=== PATIENT | female | born 1940 | race Caucasian/White ===

== ENCOUNTER 2018-02-12 06:57 | Day surgery (SDC) | payer MEDICARE, OTHER ==
[~2018-02-12 06:57] MED LIST: Lactated Ringers 1,000 ML IV SCH
[2018-02-12] MEDS ORDERED: Propofol 200 MG/20 ML SDV ONE (07:57)
[2018-02-12] MEDS ORDERED: fentaNYL 100 MCG/2 ML SDV ONE (07:57)
[2018-02-12 09:25] VITALS: BP 125/55
--- NOTE | 2018-02-15 08:05 | OR ---
PREOPERATIVE DIAGNOSIS: Family history of colon cancer-mother and sister. POSTOPERATIVE DIAGNOSIS: Normal colonoscopic exam. PROCEDURE PROPOSED AND PROCEDURE DONE: Total flexible colonoscopy. INDICATION: This is a 77-year-old female, who comes in for colonic surveillance due to a family history of a mother and a sister with colon cancer. She denies any symptomatology. Her last examination was approximately 5 years ago. TECHNIQUE: The patient was brought to the endoscopy suite, placed in left lateral decubitus position. She was sedated per [employer] with propofol. The flexible video colonoscope was then passed transanally and under visualization advanced to the cecum. Examination revealed normal ascending, transverse, descending, sigmoid, and rectal colon. There was no evidence of any polyps, diverticulosis, colitis, or other abnormalities and the scope was then withdrawn. The patient tolerated the procedure well. FINAL IMPRESSION: 1. Essentially normal colonoscopic exam. 2. Family history of colon cancer. PLAN: At her age now, I do not feel she needs to continue with colonic surveillance, so I feel that she does not need any future colonoscopies. SCM: 02/12/2018 08:44:40 MODL: 02/12/2018 14:57:18 /[id number]
== END 2018-02-12 09:55 | disposition home or self-care (01) ==
LOC: VM.SDS 06:57
PROVIDERS: ATTEND Surgery
DX: Z12.11 Encounter for screening for malignant neoplasm of colon (principal); Z80.0 Family history of malignant neoplasm of digestive organs
CPT/HCPCS: G0105; J2704; J3010; J7120; 00812

== ENCOUNTER 2021-02-03 18:04 | Emergency (ER) | payer MEDICARE, OTHER ==
[2021-02-03] MEDS ORDERED: Dexamethasone 4 MG/ML SDV IM ONE (18:27)
[2021-02-03] MEDS ORDERED: Ketorolac 30 MG/ML SDV IM ONE (18:27)
--- NOTE | 2021-02-03 18:33 | EDM.PDOC ---
ED HPI GENERAL MEDICAL PROBLEM - General Chief Complaint: Back Pain or Injury Stated Complaint: BACK PAIN Time Seen by Provider: 02/03/21 18:20 Source of Information: Reports: Patient History Limitations: Reports: No Limitations - History of Present Illness INITIAL COMMENTS - FREE TEXT/NARRATIVE: Patient comes into the emergency department complaint of right lower back pain. Patient has a longstanding history of chronic back pain and does receive injections every 6 months. Patient states that she is to have an injection here in approximately 2 weeks and states that it has been increasing in pain over the last 24 hours. She denies any fall, trauma, swelling, CMS concerns, range of motion concerns, lower extremity swelling, or decrease in skin discoloration. Patient states that the pain has just been increasing. The patient's family member at the bedside also states that the patient has been having some elevated blood pressure intermittently when her pain is elevated as well as constipation issues. Her last bowel movement was proximately 2 days ago. Patient denies taking anything [id number] to help with her bowel movements. She denies any fever, nausea, vomiting, chest pain, dizziness, lightheadedness, genitourinary concerns or peripheral edema thank you Onset: Gradual Location: Reports: Back Quality: Reports: Stabbing, Throbbing Severity: Moderate Improves with: Reports: Rest Worsens with: Reports: Movement Context: Reports: Other Associated Symptoms: Reports: No Other Symptoms - Related Data Allergies Allergy/AdvReac Type Severity Reaction Status Date / Time No Known Allergies Allergy Verified 02/12/18 07:37 Home Meds: Home Meds Calcium Carbonate [Calcium] 600 mg PO DAILY 06/01/14 [History] Cholecalciferol (Vitamin D3) [Vitamin D] 4,000 units PO DAILY 06/01/14 [History] Levothyroxine [Synthroid] 88 mcg PO DAILY 06/01/14 [History] Lisinopril 15 mg PO DAILY 06/01/14 [History] Lovastatin [Mevacor] 20 mg PO DAILY 06/01/14 [History] Aspirin [Halfprin] 81 mg PO DAILY 02/08/18 [History] Denosumab [Prolia] 1 ml SUBCUT Q180D 02/08/18 [History] Dextran 70/Hypromellose [Artificial Tears] 1 drop OP Q4H PRN 02/08/18 [History] hydroCHLOROthiazide [Hydrochlorothiazide] 25 mg PO DAILY 02/08/18 [History] Past Medical History HEENT History: Reports: Cataract, Retinal Detachment Other HEENT History: presbyopia, myopia, astigmatism, dry eye, posterior vitreous detachment, pseudophakia Cardiovascular History: Reports: High Cholesterol, Hypertension Other Cardiovascular History: mitral regurgitation, aortic regurgitation Respiratory History: Reports: None Gastrointestinal History: Reports: Diverticulosis Other Gastrointestinal History: family hx colon cancer Genitourinary History: Reports: None Musculoskeletal History: Reports: Other (See Below) Other Musculoskeletal History: dense breast,. collapsed vertebra,. osteopenia Neurological History: Reports: None Psychiatric History: Reports: None Endocrine/Metabolic History: Reports: Hypothyroidism Hematologic History: Reports: Other (See Below) Other Hematologic History: thrombocytopenia Immunologic History: Reports: None Oncologic (Cancer) History: Reports: Breast Other Dermatologic History: herpes zoster - Past Surgical History Head Surgeries/Procedures: Reports: None HEENT Surgical History: Reports: None, Cataract Surgery Cardiovascular Surgical History: Reports: None Respiratory Surgical History: Reports: None GI Surgical History: Reports: Colonoscopy Female Surgical History: Reports: None Neurological Surgical History: Reports: None Musculoskeletal Surgical History: Reports: None Oncologic Surgical History: Reports: Lumpectomy Dermatological Surgical History: Reports: None ED ROS GENERAL - Review of Systems Review Of Systems: Comprehensive ROS is negative, except as noted in HPI. Constitutional: Reports: No Symptoms HEENT: Reports: No Symptoms Respiratory: Reports: No Symptoms Cardiovascular: Reports: No Symptoms Endocrine: Reports: No Symptoms GI/Abdominal: Reports: No Symptoms : Reports: No Symptoms Musculoskeletal: Reports: Back Pain Skin: Reports: No Symptoms Neurological: Reports: No Symptoms Psychiatric: Reports: No Symptoms Hematologic/Lymphatic: Reports: No Symptoms Immunologic: Reports: No Symptoms ED EXAM, GENERAL - Physical Exam Exam: See Below Exam Limited By: No Limitations General Appearance: Alert, WD/WN, No Apparent Distress Head: Atraumatic, Normocephalic Neck: Normal Inspection, Supple, Non-Tender, Full Range of Motion Respiratory/Chest: No Respiratory Distress, Lungs Clear, Normal Breath Sounds, No Accessory Muscle Use, Chest Non-Tender Cardiovascular: Normal Peripheral Pulses, Regular Rate, Rhythm, No Edema GI/Abdominal: Normal Bowel Sounds, Soft, Non-Tender, No Organomegaly, No Di stention, No Abnormal Bruit Back Exam: Normal Inspection, Full Range of Motion Extremities: Normal Inspection, Normal Range of Motion, Non-Tender, Normal Capillary Refill Neurological: Alert, Oriented Psychiatric: Normal Affect, Normal Mood Skin Exam: Warm, Dry, Intact Course - Orders/Labs/Meds Orders: Active Orders 24 hr Category Date Time Status Ketorolac [Toradol] Med 02/03/21 18:27 Once 30 mg IM ONETIME ONE dexAMETHasone [Decadron] Med 02/03/21 18:27 Once 8 mg IM ONETIME ONE Departure - Departure Time of Disposition: 18:40 Disposition: Home, Self-Care 01 Condition: Good Clinical Impression: Back pain Qualifiers: Back pain location: low back pain Chronicity: chronic Back pain laterality: right Sciatica presence: without sciatica Qualified Code(s): M54.5 - Low back pain; G89.29 - Other chronic pain - Discharge Information *PRESCRIPTION DRUG MONITORING PROGRAM REVIEWED*: Not Applicable *COPY OF PRESCRIPTION DRUG MONITORING REPORT IN PATIENT ADAN: Not Applicable Instructions: Chronic Back Pain, [id number], Pain Medicine Instructions, [id number] Referrals: Lola Landry, [Primary Care Provider] - Forms: ED Department Discharge Additional Instructions: 1. rest 2. increase your water intake 3. Continue all at home medications 4. Activity and diet as tolerated 5. Can take over the counter Tylenol for any pain or discomfort 6. Follow up with PCP if symptoms continue, return, or progress 7. Call with any questions or concerns - My Orders Last 24 Hours: My Active Orders 02/03/21 18:27 Ketorolac [Toradol] 30 mg IM ONETIME ONE dexAMETHasone [Decadron] 8 mg IM ONETIME ONE - Assessment/Plan Last 24 Hours: My Active Orders 02/03/21 18:27 Ketorolac [Toradol] 30 mg IM ONETIME ONE dexAMETHasone [Decadron] 8 mg IM ONETIME ONE Assessment:: 1. acute on chronic back pain Plan: 1. Toradol IM given in the ER today 2. Dexamethasone given in the ER 3. Education provided the patient regarding activity, diet, rest, [id number] medication modalities, and follow-up care was provided 4. Patient and family are agreeable to the above plan of care 5. All questions and concerns were addressed with the patient and family prior to discharge
[2021-02-03 19:06] VITALS: BP 171/67; PULSE 71
== END 2021-02-03 19:11 | disposition home or self-care (01) ==
LOC: VM.ED 18:04
DX: G89.29 Other chronic pain (principal); M54.5 Low back pain; E78.00 Pure hypercholesterolemia, unspecified; I10 Essential (primary) hypertension; E03.9 Hypothyroidism, unspecified; Z79.82 Long term (current) use of aspirin; Z79.899 Other long term (current) drug therapy
CPT/HCPCS: 96372; 99283; 99284; J1100; J1885

== ENCOUNTER 2024-02-24 12:22 | Inpatient (IN) | payer MEDICARE, OTHER ==
[2024-02-24] MEDS ORDERED: Sodium Chloride 0.9% 10 ML Syringe FLUSH PRN (12:32)
[2024-02-24] MEDS ORDERED: Bisacodyl 10 MG Supp RECTAL PRN (12:58)
[2024-02-24] MEDS ORDERED: Bisacodyl 5 MG Tab PO PRN (12:58)
[2024-02-24] MEDS: cefTRIAXone 1 GM Vial IVPUSH SCH (13:25)
[2024-02-24] MEDS: Azithromycin 500 MG in Sodium Chloride 0.9% 250 ML IV SCH (13:25)
[2024-02-24] MEDS: Sodium Chloride 0.9% 1,000 ML IV ONE (17:00)
[2024-02-24 17:09] LABS: APPEARANCE,URINE SLIGHTLY CLOUDY (CLEAR); BILIRUBIN,URINE NEGATIVE (NEGATIVE); COLOR,URINE YELLOW (YELLOW); GLUCOSE,URINE NEGATIVE (NEGATIVE); KETONES,URINE NEGATIVE (NEGATIVE); LEUKOCYTE ESTERASE,URINE SMALL (NEGATIVE); NITRITE,URINE NEGATIVE (NEGATIVE); OCCULT BLOOD,URINE TRACE-INTACT (NEGATIVE); PH,URINE 5.5 (5.0-8.0); PROTEIN,URINE TRACE mg/dL (NEGATIVE); UROBILINOGEN,URINE 0.2 EU/dL (0.2)
[2024-02-24 17:16] LABS: BACTERIA,URINE RARE /HPF (NOT SEEN); GRANULAR CASTS,URINE FEW; HYALINE CASTS,URINE FEW; MUCUS,URINE RARE /LPF (NOT SEEN); SQUAMOUS EPITHELIAL CELLS,UR FEW /HPF (NOT SEEN)
[2024-02-24] MEDS: Sodium Chloride 0.9% 500 ML IV ONE ×2 (18:49→18:50)
[2024-02-24] MEDS ORDERED: Flumazenil 0.1 MG/ML 5 ML MDV IVPUSH PRN (19:40)
[2024-02-24] MEDS: QUEtiapine 25 MG Tab PO SCH (19:56)
[2024-02-24 20:39] LABS: LACTIC ACID 2.5 mmol/L (0.4-2.0)
[2024-02-24] MEDS: LORazepam 2 MG/ML SDV IVPUSH PRN (21:51)
[2024-02-24] MEDS: Sodium Chloride 0.9% 1,000 ML IV SCH (22:32)
[2024-02-25 05:53] LABS: BASOPHILS PERCENT AUTO 0.2 % (0.2-1.2); EOSINOPHILS ABSOLUTE AUTO 0.2 x10^3/uL (0.0-0.5); EOSINOPHILS PERCENT AUTO 1.9 % (0.0-4.0); HEMATOCRIT 26.7 % (33.0-47.0); HEMOGLOBIN 8.3 g/dL (12.0-16.0); IMMATURE GRAN ABSOLUTE AUTO 0.04 x10^3/uL (0.00-0.07); LYMPHOCYTES ABSOLUTE AUTO 1.4 x10^3/uL (1.0-4.8); LYMPHOCYTES PERCENT AUTO 13.8 % (25.0-50.0); MEAN CORPUSCULAR HEMOGLOBIN 24.5 pg (26.0-32.0); MEAN CORPUSCULAR HGB CONC 31.1 g/dL (32.0-36.0); MEAN CORPUSCULAR VOLUME 78.8 fL (78.0-93.0); MONOCYTES PERCENT AUTO 9.4 % (2.0-11.0); NEUTROPHILS ABSOLUTE AUTO 7.5 x10^3/uL (1.8-7.7); NEUTROPHILS PERCENT AUTO 74.3 % (50.0-80.0); PLATELET COUNT,PLT 199 x10^3/uL (130-400); RED BLOOD CELL COUNT 3.39 x10^6/uL (4.00-5.50); WHITE BLOOD CELL COUNT,WBC 10.1 x10^3/uL (4.0-10.0)
[2024-02-25 06:10] LABS: A/G RATIO 0.54; ALBUMIN 2.2 g/dL (3.4-5.0); BILIRUBIN TOTAL 0.4 mg/dL (0.2-1.0); CALCIUM 8.4 mg/dL (8.5-10.1); CREATININE 1.1 mg/dL (0.55-1.02); EST CRCL DRUG DOSING (CG) 26.86 mL/min; POTASSIUM,K 3.5 mmol/L (3.5-5.1); PROTEIN TOTAL,TP 6.3 g/dL (6.4-8.2)
[2024-02-25 06:14] LABS: ANION GAP 11.5 mmol/L (5-15)
[2024-02-25] MEDS: Azithromycin 500 MG in Sodium Chloride 0.9% 250 ML IV SCH (08:45)
[2024-02-25] MEDS: cefTRIAXone 1 GM Vial IVPUSH SCH (08:45)
[2024-02-25] MEDS: Metoprolol Succinate 25 MG Tab.ER PO SCH (08:50)
[2024-02-25] MEDS: Cholecalciferol (Vitamin D3) 25 MCG Tab PO SCH (08:50)
[2024-02-25] MEDS: Calcium Carbonate 750 MG Tab.Chew PO SCH (08:50)
[2024-02-25] MEDS: Cyanocobalamin (Vitamin B12) 1,000 MCG Tab PO SCH (08:50)
[2024-02-25] MEDS: Lisinopril 20 MG Tab PO SCH (08:50)
[2024-02-25] MEDS: Aspirin 81 MG Tab.EC PO SCH (08:50)
[2024-02-25] MEDS: Levothyroxine 88 MCG Tab PO SCH (08:50)
[2024-02-25] MEDS ORDERED: Enoxaparin 30 MG/0.3 ML Syringe SUBCUT SCH (12:00)
[2024-02-25] MEDS: Albuterol/Ipratropium 3.0-0.5 MG/3 ML Neb Soln NEB SCH (15:14)
[2024-02-25] MEDS: Spironolactone 25 MG Tab PO ONE (16:13)
[2024-02-25] MEDS: Furosemide 20 MG/2 ML VIAL IV ONE (16:13)
[2024-02-25] MEDS: QUEtiapine 25 MG Tab PO PRN (20:04)
[2024-02-26 06:50] LABS: BASOPHILS PERCENT AUTO 0.2 % (0.2-1.2); EOSINOPHILS ABSOLUTE AUTO 0.1 x10^3/uL (0.0-0.5); HEMATOCRIT 28.9 % (33.0-47.0); HEMOGLOBIN 8.9 g/dL (12.0-16.0); IMMATURE GRAN ABSOLUTE AUTO 0.12 x10^3/uL (0.00-0.07); LYMPHOCYTES ABSOLUTE AUTO 1.5 x10^3/uL (1.0-4.8); LYMPHOCYTES PERCENT AUTO 14.3 % (25.0-50.0); MEAN CORPUSCULAR HEMOGLOBIN 23.9 pg (26.0-32.0); MEAN CORPUSCULAR HGB CONC 30.8 g/dL (32.0-36.0); MEAN CORPUSCULAR VOLUME 77.5 fL (78.0-93.0); MONOCYTES ABSOLUTE AUTO 0.9 x10^3/uL (0.0-0.8); MONOCYTES PERCENT AUTO 8.5 % (2.0-11.0); NEUTROPHILS PERCENT AUTO 74.9 % (50.0-80.0); PLATELET COUNT,PLT 229 x10^3/uL (130-400); RED BLOOD CELL COUNT 3.73 x10^6/uL (4.00-5.50); WHITE BLOOD CELL COUNT,WBC 10.7 x10^3/uL (4.0-10.0)
[2024-02-26 07:04] LABS: ANION GAP 13.7 mmol/L (5-15); CALCIUM 8.8 mg/dL (8.5-10.1); CREATININE 1.1 mg/dL (0.55-1.02); EST CRCL DRUG DOSING (CG) 26.86 mL/min; POTASSIUM,K 3.7 mmol/L (3.5-5.1)
[2024-02-26] MEDS ORDERED: LORazepam 2 MG/ML SDV IVPUSH PRN (08:34)
[2024-02-26] MEDS: Furosemide 20 MG/2 ML VIAL IV SCH (09:12)
[2024-02-26] MEDS: Spironolactone 25 MG Tab PO SCH (09:18)
[2024-02-26] MEDS: Ketotifen 0.025% Ophth Soln 5 ML Bottle EYELF SCH (09:43)
[2024-02-26 13:33] LABS: HCO3 VENOUS,POC 27 mmol/L (22-29); O2 SATURATION VENOUS,POC 98 %; PCO2 VENOUS,POC 33 mmHg (41-51); PH VENOUS,POC 7.53 pH (7.32-7.43); PO2 VENOUS,POC 86 mmHg
[2024-02-26] MEDS: Morphine Oral Concentrate 20 MG/ML 30 ML Bottle SL PRN (13:36)
[2024-02-26] MEDS: Enoxaparin 30 MG/0.3 ML Syringe SUBCUT SCH (13:43)
[2024-02-26] MEDS: LORazepam 0.5 MG Tab PO PRN (19:34)
[2024-02-26] MEDS: Melatonin 3 MG Tab PO SCH (20:05)
[2024-02-27 08:09] LABS: BASOPHILS PERCENT AUTO 0.1 % (0.2-1.2); EOSINOPHILS ABSOLUTE AUTO 0.1 x10^3/uL (0.0-0.5); EOSINOPHILS PERCENT AUTO 1.4 % (0.0-4.0); HEMATOCRIT 29.8 % (33.0-47.0); HEMOGLOBIN 9.2 g/dL (12.0-16.0); IMMATURE GRAN ABSOLUTE AUTO 0.15 x10^3/uL (0.00-0.07); LYMPHOCYTES PERCENT AUTO 10.2 % (25.0-50.0); MEAN CORPUSCULAR HEMOGLOBIN 24.1 pg (26.0-32.0); MEAN CORPUSCULAR HGB CONC 30.9 g/dL (32.0-36.0); MEAN CORPUSCULAR VOLUME 78.2 fL (78.0-93.0); MONOCYTES ABSOLUTE AUTO 0.8 x10^3/uL (0.0-0.8); MONOCYTES PERCENT AUTO 8.4 % (2.0-11.0); NEUTROPHILS ABSOLUTE AUTO 7.7 x10^3/uL (1.8-7.7); NEUTROPHILS PERCENT AUTO 78.4 % (50.0-80.0); PLATELET COUNT,PLT 251 x10^3/uL (130-400); RED BLOOD CELL COUNT 3.81 x10^6/uL (4.00-5.50); WHITE BLOOD CELL COUNT,WBC 9.8 x10^3/uL (4.0-10.0)
[2024-02-27 08:20] LABS: CALCIUM 9.5 mg/dL (8.5-10.1); CREATININE 1.2 mg/dL (0.55-1.02); EST CRCL DRUG DOSING (CG) 24.62 mL/min; POTASSIUM,K 3.9 mmol/L (3.5-5.1)
[2024-02-27 08:22] LABS: ANION GAP 11.9 mmol/L (5-15)
[2024-02-28 09:19] LABS: BASOPHILS PERCENT AUTO 0.2 % (0.2-1.2); EOSINOPHILS ABSOLUTE AUTO 0.1 x10^3/uL (0.0-0.5); EOSINOPHILS PERCENT AUTO 1.1 % (0.0-4.0); HEMATOCRIT 29.9 % (33.0-47.0); HEMOGLOBIN 9.2 g/dL (12.0-16.0); LYMPHOCYTES ABSOLUTE AUTO 1.4 x10^3/uL (1.0-4.8); LYMPHOCYTES PERCENT AUTO 12.3 % (25.0-50.0); MEAN CORPUSCULAR HEMOGLOBIN 24.2 pg (26.0-32.0); MEAN CORPUSCULAR HGB CONC 30.8 g/dL (32.0-36.0); MEAN CORPUSCULAR VOLUME 78.7 fL (78.0-93.0); MONOCYTES ABSOLUTE AUTO 0.9 x10^3/uL (0.0-0.8); MONOCYTES PERCENT AUTO 7.8 % (2.0-11.0); NEUTROPHILS ABSOLUTE AUTO 8.7 x10^3/uL (1.8-7.7); NEUTROPHILS PERCENT AUTO 76.8 % (50.0-80.0); WHITE BLOOD CELL COUNT,WBC 11.4 x10^3/uL (4.0-10.0)
[2024-02-28 09:23] LABS: PLATELET COUNT,PLT 289 x10^3/uL (130-400)
[2024-02-28 09:37] LABS: A/G RATIO 0.42; ALBUMIN 2.1 g/dL (3.4-5.0); BILIRUBIN TOTAL 0.3 mg/dL (0.2-1.0); CALCIUM 9.7 mg/dL (8.5-10.1); CREATININE 1.4 mg/dL (0.55-1.02); EST CRCL DRUG DOSING (CG) 21.1 mL/min; POTASSIUM,K 3.8 mmol/L (3.5-5.1); PROTEIN TOTAL,TP 7.1 g/dL (6.4-8.2)
[2024-02-28 09:38] LABS: ANION GAP 8.8 mmol/L (5-15)
[2024-02-28] MEDS: Sodium Chloride 0.9% 500 ML IV ONE (10:40)
[2024-02-29 08:14] LABS: BASOPHILS PERCENT AUTO 0.2 % (0.2-1.2); EOSINOPHILS ABSOLUTE AUTO 0.2 x10^3/uL (0.0-0.5); HEMATOCRIT 30.1 % (33.0-47.0); HEMOGLOBIN 9.2 g/dL (12.0-16.0); IMMATURE GRAN ABSOLUTE AUTO 0.35 x10^3/uL (0.00-0.07); LYMPHOCYTES ABSOLUTE AUTO 1.3 x10^3/uL (1.0-4.8); LYMPHOCYTES PERCENT AUTO 11.6 % (25.0-50.0); MEAN CORPUSCULAR HEMOGLOBIN 24.1 pg (26.0-32.0); MEAN CORPUSCULAR HGB CONC 30.6 g/dL (32.0-36.0); MONOCYTES ABSOLUTE AUTO 0.6 x10^3/uL (0.0-0.8); MONOCYTES PERCENT AUTO 5.3 % (2.0-11.0); NEUTROPHILS ABSOLUTE AUTO 8.6 x10^3/uL (1.8-7.7); NEUTROPHILS PERCENT AUTO 77.7 % (50.0-80.0); PLATELET COUNT,PLT 293 x10^3/uL (130-400); RED BLOOD CELL COUNT 3.81 x10^6/uL (4.00-5.50); WHITE BLOOD CELL COUNT,WBC 11.1 x10^3/uL (4.0-10.0)
[2024-02-29 08:39] LABS: A/G RATIO 0.4; BILIRUBIN TOTAL 0.3 mg/dL (0.2-1.0); CALCIUM 9.4 mg/dL (8.5-10.1); CREATININE 1.3 mg/dL (0.55-1.02); EST CRCL DRUG DOSING (CG) 22.73 mL/min; POTASSIUM,K 3.3 mmol/L (3.5-5.1)
[2024-02-29 08:42] LABS: ANION GAP 9.3 mmol/L (5-15)
[2024-02-29] MEDS: Potassium Chloride 20 MEQ Tab.ER PO ONE (09:20)
[2024-02-29] MEDS: Furosemide 20 MG Tab PO SCH (09:28)
[2024-02-29] MEDS: Dexamethasone/Neomycin/Polymyxin B Ophth Susp 5 ML Bottle EYEBOTH SCH (09:31)
[2024-02-29] MEDS: Acetaminophen 650 MG Tab.ER PO PRN (17:17)
[2024-03-01 07:13] LABS: BASOPHILS PERCENT AUTO 0.1 % (0.2-1.2); EOSINOPHILS ABSOLUTE AUTO 0.4 x10^3/uL (0.0-0.5); EOSINOPHILS PERCENT AUTO 3.7 % (0.0-4.0); HEMATOCRIT 31.3 % (33.0-47.0); HEMOGLOBIN 9.6 g/dL (12.0-16.0); IMMATURE GRAN ABSOLUTE AUTO 0.26 x10^3/uL (0.00-0.07); LYMPHOCYTES ABSOLUTE AUTO 1.2 x10^3/uL (1.0-4.8); LYMPHOCYTES PERCENT AUTO 11.6 % (25.0-50.0); MEAN CORPUSCULAR HEMOGLOBIN 24.2 pg (26.0-32.0); MEAN CORPUSCULAR HGB CONC 30.7 g/dL (32.0-36.0); MEAN CORPUSCULAR VOLUME 78.8 fL (78.0-93.0); MONOCYTES ABSOLUTE AUTO 0.5 x10^3/uL (0.0-0.8); MONOCYTES PERCENT AUTO 4.6 % (2.0-11.0); NEUTROPHILS PERCENT AUTO 77.5 % (50.0-80.0); PLATELET COUNT,PLT 322 x10^3/uL (130-400); RED BLOOD CELL COUNT 3.97 x10^6/uL (4.00-5.50); WHITE BLOOD CELL COUNT,WBC 10.3 x10^3/uL (4.0-10.0)
[2024-03-01 07:15] LABS: A/G RATIO 0.42; ALBUMIN 2.1 g/dL (3.4-5.0); BILIRUBIN TOTAL 0.3 mg/dL (0.2-1.0); C-REACTIVE PROTEIN 12.26 mg/dL (<=0.50); CALCIUM 9.7 mg/dL (8.5-10.1); CREATININE 1.1 mg/dL (0.55-1.02); EST CRCL DRUG DOSING (CG) 26.86 mL/min; POTASSIUM,K 4.1 mmol/L (3.5-5.1); PROTEIN TOTAL,TP 7.1 g/dL (6.4-8.2)
[2024-03-01 07:17] LABS: ANION GAP 12.1 mmol/L (5-15)
[2024-03-01] MEDS: Enoxaparin 40 MG/0.4 ML Syringe SUBCUT SCH (18:30)
[2024-03-02 06:53] LABS: BASOPHILS PERCENT AUTO 0.2 % (0.2-1.2); EOSINOPHILS ABSOLUTE AUTO 0.6 x10^3/uL (0.0-0.5); EOSINOPHILS PERCENT AUTO 5.4 % (0.0-4.0); HEMATOCRIT 30.6 % (33.0-47.0); HEMOGLOBIN 9.5 g/dL (12.0-16.0); IMMATURE GRAN ABSOLUTE AUTO 0.23 x10^3/uL (0.00-0.07); LYMPHOCYTES ABSOLUTE AUTO 1.5 x10^3/uL (1.0-4.8); LYMPHOCYTES PERCENT AUTO 14.1 % (25.0-50.0); MEAN CORPUSCULAR HEMOGLOBIN 24.1 pg (26.0-32.0); MEAN CORPUSCULAR VOLUME 77.5 fL (78.0-93.0); MONOCYTES ABSOLUTE AUTO 0.5 x10^3/uL (0.0-0.8); MONOCYTES PERCENT AUTO 4.5 % (2.0-11.0); NEUTROPHILS ABSOLUTE AUTO 7.8 x10^3/uL (1.8-7.7); NEUTROPHILS PERCENT AUTO 73.6 % (50.0-80.0); RED BLOOD CELL COUNT 3.95 x10^6/uL (4.00-5.50); WHITE BLOOD CELL COUNT,WBC 10.6 x10^3/uL (4.0-10.0)
[2024-03-02 07:03] LABS: PLATELET COUNT,PLT 351 x10^3/uL (130-400)
[2024-03-02 07:13] LABS: CALCIUM 9.8 mg/dL (8.5-10.1); CREATININE 1.1 mg/dL (0.55-1.02); EST CRCL DRUG DOSING (CG) 26.86 mL/min; PHOSPHORUS 3.6 mg/dL (2.6-4.7); POTASSIUM,K 4.4 mmol/L (3.5-5.1)
[2024-03-02 08:23] VITALS: BP 119/68; PULSE 76
== END 2024-03-02 10:25 | DRG 193 ==
LOC: VM.MS 12:22
PROVIDERS: ADMIT Nurse Practitioner Family; ATTEND Nurse Practitioner Family
DX: J18.9 Pneumonia, unspecified organism (principal); J96.01 Acute respiratory failure with hypoxia; E87.20 Acidosis, unspecified; F02.C18 Dementia in other diseases classified elsewhere, severe, with other behavioral disturbance; E44.0 Moderate protein-calorie malnutrition; E03.9 Hypothyroidism, unspecified; M81.0 Age-related osteoporosis without current pathological fracture; I08.0 Rheumatic disorders of both mitral and aortic valves; Z66 Do not resuscitate; E86.1 Hypovolemia; E78.00 Pure hypercholesterolemia, unspecified; G30.1 Alzheimer's disease with late onset; I95.9 Hypotension, unspecified; I11.0 Hypertensive heart disease with heart failure; I50.9 Heart failure, unspecified; D64.9 Anemia, unspecified; E83.52 Hypercalcemia; Z85.3 Personal history of malignant neoplasm of breast; Z98.49 Cataract extraction status, unspecified eye; Z86.16 Personal history of COVID-19; Z79.82 Long term (current) use of aspirin; Z79.899 Other long term (current) drug therapy; Z79.890 Hormone replacement therapy; Z98.890 Other specified postprocedural states
CPT/HCPCS: 36415; 70450; 71045; 80048; 80053; 80069; 81001; 82140; 82803; 83605; 83880; 85018; 85025; 85652; 86140; 87040; 87070; 87086; 92610-GN; 94640; 94760; 97161-GP; 99232; A9270-GY; J0456; J0696; J1650; J1940; J2060; J7030; J7050; J7620-GY; U0002

== ENCOUNTER 2024-07-14 15:00 | Inpatient (IN) | payer MEDICARE, OTHER ==
[2024-07-14] MEDS ORDERED: Sodium Chloride 0.9% 10 ML Syringe FLUSH PRN (15:12)
[2024-07-14 15:51] LABS: BASOPHILS PERCENT AUTO 0.4 % (0.2-1.2); EOSINOPHILS PERCENT AUTO 0.2 % (0.0-4.0); HEMATOCRIT 32.5 % (33.0-47.0); HEMOGLOBIN 10.1 g/dL (12.0-16.0); IMMATURE GRAN ABSOLUTE AUTO 0.01 x10^3/uL (0.00-0.07); LYMPHOCYTES ABSOLUTE AUTO 1.2 x10^3/uL (1.0-4.8); LYMPHOCYTES PERCENT AUTO 21.5 % (25.0-50.0); MEAN CORPUSCULAR HEMOGLOBIN 23.3 pg (26.0-32.0); MEAN CORPUSCULAR HGB CONC 31.1 g/dL (32.0-36.0); MEAN CORPUSCULAR VOLUME 74.9 fL (78.0-93.0); MONOCYTES ABSOLUTE AUTO 0.7 x10^3/uL (0.0-0.8); MONOCYTES PERCENT AUTO 12.9 % (2.0-11.0); NEUTROPHILS ABSOLUTE AUTO 3.5 x10^3/uL (1.8-7.7); NEUTROPHILS PERCENT AUTO 64.8 % (50.0-80.0); PLATELET COUNT,PLT 225 x10^3/uL (130-400); RED BLOOD CELL COUNT 4.34 x10^6/uL (4.00-5.50); WHITE BLOOD CELL COUNT,WBC 5.4 x10^3/uL (4.0-10.0)
[2024-07-14 16:01] LABS: PROTHROMBIN TIME 9.8 SEC (8.9-11.5)
[2024-07-14 16:08] LABS: LACTIC ACID 1.9 mmol/L (0.4-2.0)
[2024-07-14 16:17] LABS: A/G RATIO 0.76; ALBUMIN 3.5 g/dL (3.4-5.0); BILIRUBIN TOTAL 0.3 mg/dL (0.2-1.0); C-REACTIVE PROTEIN 1.41 mg/dL (<=0.50); CALCIUM 9.8 mg/dL (8.5-10.1); CREATININE 1.7 mg/dL (0.55-1.02); EST CRCL DRUG DOSING (CG) 17.38 mL/min; POTASSIUM,K 4.8 mmol/L (3.5-5.1); PROTEIN TOTAL,TP 8.1 g/dL (6.4-8.2)
[2024-07-14 16:18] LABS: ANION GAP 15.8 mmol/L (5-15)
[2024-07-14] MEDS ORDERED: Bisacodyl 5 MG Tab PO PRN (16:26)
[2024-07-14] MEDS ORDERED: Bisacodyl 10 MG Supp RECTAL PRN (16:26)
[2024-07-14 16:28] LABS: SEDIMENTATION RATE AUTO 49 mm/hr (0-20)
[2024-07-14] MEDS: Ampicillin/Sulbactam 3 GM Vial IVPUSH SCH (17:22)
[2024-07-14] MEDS: Sodium Chloride 0.9% 1,000 ML IV SCH (17:44)
[2024-07-14] MEDS: HYDROmorphone 0.5 MG/0.5 ML Syringe IVPUSH PRN (18:50)
[2024-07-14] MEDS: VANCOmycin 1 GM in Sodium Chloride 0.9% 250 ML IV ONE (18:55)
[2024-07-14] MEDS: Acyclovir 500 MG in Sodium Chloride 0.9% 100 ML IV SCH (20:21)
[2024-07-14] MEDS: Gabapentin 100 MG Cap PO SCH (20:27)
[2024-07-14] MEDS: Melatonin 3 MG Tab PO SCH (20:27)
[2024-07-15] MEDS: Acyclovir 500 MG in Sodium Chloride 0.9% 100 ML IV SCH (03:45)
[2024-07-15] MEDS: Levothyroxine 88 MCG Tab PO SCH (06:28)
[2024-07-15 07:07] LABS: HEMATOCRIT 29.1 % (33.0-47.0); HEMOGLOBIN 9.1 g/dL (12.0-16.0); MEAN CORPUSCULAR HEMOGLOBIN 23.5 pg (26.0-32.0); MEAN CORPUSCULAR HGB CONC 31.3 g/dL (32.0-36.0); MEAN CORPUSCULAR VOLUME 75.2 fL (78.0-93.0); PLATELET COUNT,PLT 176 x10^3/uL (130-400); RED BLOOD CELL COUNT 3.87 x10^6/uL (4.00-5.50); WHITE BLOOD CELL COUNT,WBC 6.1 x10^3/uL (4.0-10.0)
[2024-07-15 07:11] LABS: CALCIUM 8.9 mg/dL (8.5-10.1); CREATININE 1.4 mg/dL (0.55-1.02); EST CRCL DRUG DOSING (CG) 21.1 mL/min; POTASSIUM,K 4.4 mmol/L (3.5-5.1)
[2024-07-15 07:14] LABS: ANION GAP 14.4 mmol/L (5-15)
[2024-07-15 07:20] LABS: BAND PERCENT MAN 3 % (0-6); LYMPHOCYTES % ATYPICAL MANUAL 6 % (0); LYMPHOCYTES ABSOLUTE MAN 1.8 x10^3/uL (1.0-4.8); LYMPHOCYTES PERCENT MAN 24 % (25-50); MONOCYTES PERCENT MAN 17 % (2-11); NEUTROPHILS ABSOLUTE MAN 3.2 x10^3/uL (1.8-7.7); SEG NEUTROPHILS PERCENT MAN 50 % (50-80)
[2024-07-15 07:21] LABS: ANISOCYTOSIS 1+ SLIGHT; HYPOCHROMASIA 1+ SLIGHT; MICROCYTOSIS 1+ SLIGHT; PLATELET COUNT ESTIMATE ADEQUATE
[2024-07-15] MEDS: Metoprolol Succinate 25 MG Tab.ER PO SCH (11:21)
[2024-07-15] MEDS: Aspirin 81 MG Tab.EC PO SCH (11:23)
[2024-07-15] MEDS: Acetaminophen 500 MG Tab PO SCH (11:40)
[2024-07-15] MEDS: Dexamethasone/Tobramycin 0.1-0.3% Ophth Oint 3.5 GM Tube EYERT SCH (11:48)
[2024-07-15] MEDS: Dexamethasone/Neomycin/Polymyxin B Ophth Oint 3.5 GM Tube EYERT SCH (13:46)
[2024-07-15] MEDS ORDERED: VANCOmycin 750 MG in Sodium Chloride 0.9% 250 ML IV SCH (18:00)
[2024-07-15] MEDS: Acyclovir 200 MG Cap PO SCH (18:44)
[2024-07-16 08:10] LABS: HEMATOCRIT 27.7 % (33.0-47.0); HEMOGLOBIN 8.7 g/dL (12.0-16.0); MEAN CORPUSCULAR HEMOGLOBIN 23.6 pg (26.0-32.0); MEAN CORPUSCULAR HGB CONC 31.4 g/dL (32.0-36.0); MEAN CORPUSCULAR VOLUME 75.3 fL (78.0-93.0); PLATELET COUNT,PLT 184 x10^3/uL (130-400); RED BLOOD CELL COUNT 3.68 x10^6/uL (4.00-5.50); WHITE BLOOD CELL COUNT,WBC 5.8 x10^3/uL (4.0-10.0)
[2024-07-16 08:32] LABS: A/G RATIO 0.75; ALBUMIN 2.7 g/dL (3.4-5.0); BILIRUBIN TOTAL 0.3 mg/dL (0.2-1.0); CALCIUM 8.8 mg/dL (8.5-10.1); CREATININE 1.3 mg/dL (0.55-1.02); EST CRCL DRUG DOSING (CG) 22.73 mL/min; PROTEIN TOTAL,TP 6.3 g/dL (6.4-8.2)
[2024-07-16 08:34] LABS: ANISOCYTOSIS 1+ SLIGHT; BAND PERCENT MAN 2 % (0-6); HYPOCHROMASIA 2+ MODERATE; LYMPHOCYTES % ATYPICAL MANUAL 10 % (0); LYMPHOCYTES ABSOLUTE MAN 2.1 x10^3/uL (1.0-4.8); LYMPHOCYTES PERCENT MAN 27 % (25-50); MICROCYTOSIS 1+ SLIGHT; MONOCYTES ABSOLUTE MAN 0.7 x10^3/uL (0.0-0.8); MONOCYTES PERCENT MAN 12 % (2-11); OVALOCYTES 1+ SLIGHT; PLATELET COUNT ESTIMATE ADEQUATE; SEG NEUTROPHILS PERCENT MAN 49 % (50-80)
[2024-07-16 08:35] LABS: SCHISTOCYTES 1+ SLIGHT
[2024-07-16] MEDS: predniSONE 20 MG Tab PO ONE (15:42)
[2024-07-16] MEDS: Amoxicillin/Clavulanate K 500-125 MG Tab PO SCH (20:21)
[2024-07-16] MEDS ORDERED: Amoxicillin/Clavulanate K 875-125 MG Tab PO SCH (21:00)
[2024-07-17] MEDS: predniSONE 20 MG Tab PO SCH (09:57)
[2024-07-17] MEDS: Acyclovir 200 MG Cap PO SCH (10:54)
[2024-07-17] MEDS: Acetaminophen 325 MG Tab PO PRN (21:04)
[2024-07-18 06:56] LABS: BASOPHILS PERCENT AUTO 0.1 % (0.2-1.2); EOSINOPHILS PERCENT AUTO 0.1 % (0.0-4.0); HEMATOCRIT 27.6 % (33.0-47.0); HEMOGLOBIN 8.7 g/dL (12.0-16.0); IMMATURE GRAN ABSOLUTE AUTO 0.02 x10^3/uL (0.00-0.07); LYMPHOCYTES ABSOLUTE AUTO 3.2 x10^3/uL (1.0-4.8); LYMPHOCYTES PERCENT AUTO 37.1 % (25.0-50.0); MEAN CORPUSCULAR HEMOGLOBIN 23.2 pg (26.0-32.0); MEAN CORPUSCULAR HGB CONC 31.5 g/dL (32.0-36.0); MEAN CORPUSCULAR VOLUME 73.6 fL (78.0-93.0); MONOCYTES ABSOLUTE AUTO 0.7 x10^3/uL (0.0-0.8); MONOCYTES PERCENT AUTO 7.5 % (2.0-11.0); NEUTROPHILS ABSOLUTE AUTO 4.8 x10^3/uL (1.8-7.7); PLATELET COUNT,PLT 247 x10^3/uL (130-400); RED BLOOD CELL COUNT 3.75 x10^6/uL (4.00-5.50); WHITE BLOOD CELL COUNT,WBC 8.7 x10^3/uL (4.0-10.0)
[2024-07-18 07:03] LABS: CALCIUM 9.1 mg/dL (8.5-10.1); CREATININE 1.1 mg/dL (0.55-1.02); EST CRCL DRUG DOSING (CG) 26.86 mL/min; POTASSIUM,K 4.1 mmol/L (3.5-5.1)
[2024-07-18 07:04] LABS: ANION GAP 13.1 mmol/L (5-15)
[2024-07-18 10:46] VITALS: BP 124/60; PULSE 77
== END 2024-07-18 10:45 | disposition home or self-care (01) | DRG 121 ==
LOC: VM.MS 15:00
PROVIDERS: ADMIT Internal Medicine; ATTEND Internal Medicine
DX: H05.019 Cellulitis of unspecified orbit (principal); B02.30 Zoster ocular disease, unspecified; N17.9 Acute kidney failure, unspecified; I13.0 Hypertensive heart and chronic kidney disease with heart failure and stage 1 through stage 4 chronic kidney disease, or unspecified chronic kidney disease; N18.2 Chronic kidney disease, stage 2 (mild); I50.9 Heart failure, unspecified; M81.0 Age-related osteoporosis without current pathological fracture; E03.9 Hypothyroidism, unspecified; R73.03 Prediabetes; Z66 Do not resuscitate; D64.9 Anemia, unspecified; G30.1 Alzheimer's disease with late onset; F02.80 Dementia in other diseases classified elsewhere, unspecified severity, without behavioral disturbance, psychotic disturbance, mood disturbance, and anxiety; Z98.890 Other specified postprocedural states; Z87.01 Personal history of pneumonia (recurrent); Z85.3 Personal history of malignant neoplasm of breast; Z90.49 Acquired absence of other specified parts of digestive tract; Z98.49 Cataract extraction status, unspecified eye; Z92.3 Personal history of irradiation
CPT/HCPCS: 36415; 70480; 80048; 80053; 80202; 83605; 85025; 85610; 85652; 86140; 87040; 87070; A9270-GY; J0133; J0295; J7030; J7050; J7512

== ENCOUNTER 2024-08-22 13:29 | Emergency (ER) | payer MEDICARE, OTHER ==
[2024-08-22 13:41] VITALS: BP 143/65; PULSE 76
== END 2024-08-22 15:10 ==
LOC: VM.ED 13:29 → SUPCPDRO 13:29 → VM.ED 15:10
DX: M25.552 Pain in left hip (principal); I10 Essential (primary) hypertension; E78.00 Pure hypercholesterolemia, unspecified; Z79.890 Hormone replacement therapy; Z79.82 Long term (current) use of aspirin; Z79.899 Other long term (current) drug therapy
CPT/HCPCS: 72170; 99283